=== PATIENT | male | born 1975 | race Caucasian/White ===

== ENCOUNTER 2022-06-30 04:04 | Day surgery (SDC) | payer OTHER ==
[~2022-06-30] VITALS: Ht 162.6 cm; Wt 82.0 kg
[2022-06-30] VITALS (221 sets, daily range): BP systolic 79–172; BP diastolic 36–106
[2022-06-30 08:27] LABS: BASO% 0.3 % (0-3); EOS% 2.3 % (0-8); HEMOGLOBIN 15.1 g/dl (14.0-18.0); IMMATURE GRANULOCYTES 0.1 % (0.0-5.0); LYMPH% 17.5 % (15-41); MEAN CELL VOLUME 85.8 fL CALC (80.0-100.0); MEAN CORPUSCULAR HGB 28.2 pG CALC (26.0-32.0); MEAN CORPUSCULAR HGB CONC 32.8 g/dL CAL (32.0-36.0); MONO% 4.3 % (2-13); NEUT# 7.47 thou/uL (1.82-7.42); NEUT% 75.5 % (42-76); RED BLOOD COUNT 5.36 mill/uL (4.70-6.10); RED CELL DISTRI WIDTH 12.6 % (11.5-15.5)
[2022-06-30 08:57] LABS: ALBUMIN 4.3 g/dL (3.2-5.0); ALKALINE PHOSPHATASE 73 u/l (38-126); ANION GAP 10 (6-22 (CALC)); BILIRUBIN, TOTAL 0.5 mg/dL (0.2-1.3); BUN 15 mg/dL (9-20); BUN/CREATININE RATIO 19 (12-20 (CALC)); CARBON DIOXIDE 29 mmol/l (22-30); CHLORIDE 103 mmol/l (95-108); CREATININE 0.8 mg/dL (0.7-1.3); GFR FOR AFR.AMER. > 60 ML/MIN (>=60 (CALC)); GFR OTHER RACES > 60 ML/MIN (>=60 (CALC)); POTASSIUM 4.3 mmol/l (3.5-5.1); SGOT/AST 34 u/l (17-59); SODIUM 138 mmol/l (137-146); TOTAL PROTEIN 7.3 g/dL (6.3-8.2)
[2022-06-30] MEDS ORDERED: CLONIDINE0.1 MG PO (14:21)
[2022-06-30] MEDS ORDERED: NALTREXONE50 MG PO (14:21)
[2022-06-30] MEDS ORDERED: KLONOPIN2 MG PO (14:22)
[2022-07-01 03:29] VITALS: BP 124/70
[2022-07-01 04:50] LABS: ALBUMIN 4.2 g/dL (3.2-5.0); ALKALINE PHOSPHATASE 80 u/l (38-126); ANION GAP 11 (6-22 (CALC)); BILIRUBIN, TOTAL 0.7 mg/dL (0.2-1.3); BUN 14 mg/dL (9-20); BUN/CREATININE RATIO 17 (12-20 (CALC)); CARBON DIOXIDE 26 mmol/l (22-30); CHLORIDE 108 mmol/l (95-108); CREATININE 0.8 mg/dL (0.7-1.3); GFR FOR AFR.AMER. > 60 ML/MIN (>=60 (CALC)); GFR OTHER RACES > 60 ML/MIN (>=60 (CALC)); MAGNESIUM 2.4 mg/dL (1.6-2.3); SGOT/AST 32 u/l (17-59); SODIUM 142 mmol/l (137-146); TOTAL PROTEIN 7.2 g/dL (6.3-8.2)
[2022-07-01 13:30] VITALS: BP 135/78
== END 2022-07-01 17:30 | disposition home or self-care (01) | DRG 897 ==
LOC: MS2 04:04 → ANR 04:04 → MS2 18:04 → ANR 07-01 17:30
PROVIDERS: ATTEND Anesthesiology Critical Care Medicine
DX: F11.20 Opioid dependence, uncomplicated (principal)
CPT/HCPCS: J2354; J3475